=== PATIENT | female | born 2000 | race African-American/Black ===

== ENCOUNTER 2023-01-03 20:45 | Emergency (ER) | payer OTHER ==
[2023-01-03 20:58] VITALS: BP 141/88; RESP 18; TEMP 98.5; BMI 48.0
[2023-01-03] MEDS ORDERED: KETOROLAC TROMETHAMINE 30 MG/1 ML VIAL IM ONE (21:57)
[2023-01-03] MEDS ORDERED: KETOROLAC TROMETHAMINE 30 MG/1 ML VIAL ONE (21:59)
[2023-01-03 22:59] VITALS: PULSE 88
== END 2023-01-03 23:10 | disposition home or self-care (01) ==
LOC: JERFT 20:45
PROC: 3E0233Z Introduction of Anti-inflammatory into Muscle, Percutaneous Approach (ICD-10-PCS; principal; 2023-01-03)
PROC: 0RSKXZZ Reposition Left Shoulder Joint, External Approach (ICD-10-PCS; 2023-01-03)
DX: S43.015A Anterior dislocation of left humerus, initial encounter (principal); M25.512 Pain in left shoulder; M25.522 Pain in left elbow; W01.0XXA Fall on same level from slipping, tripping and stumbling without subsequent striking against object, initial encounter; Y93.89 Activity, other specified; Y92.9 Unspecified place or not applicable
CPT/HCPCS: 73030-TC-LT-FY; 73070-TC-LT-FY; 99284-25